=== PATIENT | female | born 1970 | race American Indian/Alaskan Native ===

== ENCOUNTER 2017-05-02 11:00 | Outpatient (CLI) | payer BC | END 2017-05-02 11:01 | disposition home or self-care (01) | LOC: SLR 11:00 | PROVIDERS: ATTEND Internal Medicine Critical Care Medicine | DX: G47.30 Sleep apnea, unspecified (principal); R40.0 Somnolence; E66.9 Obesity, unspecified | CPT/HCPCS: G0399 ==

== ENCOUNTER 2018-10-02 10:02 | Outpatient (CLI) | payer MEDICARE ==
--- NOTE | 2018-10-02 15:52 | Magnetic Resonance Report ---
MRI LUMBAR SPINE WITHOUT CONTRAST: 10/02/18 CLINICAL: Low back pain. TECHNIQUE: Sagittal and axial T1 and T2, and sagittal STIR sequences on a 1.5 Nyla magnet. FINDINGS: The vertebral bodies are labeled by counting from S1 and there is a well-formed S1 disc space. The upper cervical levels are not included on the farmworker bulbs preventing a top-down count. Normal vertebral body height, alignment and disc spaces. Normal marrow signal. Decreased T2 disc signal at L5-S1. The conus medullaris is normal and terminates at L1. L1-2: Intact. L2-3: Intact. L3-4: Intact. L4-5: Mild circumferential disc bulge and small focal central disc protrusion. Bilateral facet hypertrophy and facet joint fluid. Mild right neural foraminal narrowing. No obvious nerve root impingement. L5-S1: A small focal central disc protrusion which is in contact with the traversing nerve roots. No neural foraminal narrowing. IMPRESSION: Degenerative disc disease at L5-S1 and L4-5. A small focal central disc protrusion at L5-S1 with muscle impingement of the traversing nerve roots. Mild circumferential disc bulge and a small focal central disc protrusion at L4-5 with no apparent nerve root impingement.
== END 2018-10-02 10:03 | disposition home or self-care (01) ==
LOC: MRI 10:02
PROVIDERS: ATTEND Orthopaedic Surgery
DX: M51.37 Other intervertebral disc degeneration, lumbosacral region (principal); M51.27 Other intervertebral disc displacement, lumbosacral region
CPT/HCPCS: 72148

== ENCOUNTER 2020-11-14 13:16 | Inpatient (IN) | payer MEDICARE ==
--- NOTE | 2020-11-14 14:52 | Emergency Department Report ---
Blank Doc - Documentation Documentation: 50-year-old female that presents with chest pain and shortness of breath. Febrile, tachycardia and tachypnea in triage. 1- This is a initial triage assessment/medical screening only. Full assessment and work-up will be completed once the patient is in proper hospital gown, ED bed and in a private room setting. This initial assessment/diagnostic orders/clinical plan/ treatment(s) is/are subject to change based on pt's health status, clinical progression and re-assessment by fellow clinical providers in the ED. Further treatment and workup at subsequent clinical providers discretion. Patient/guardians urged not to elope from ED as their condition may be serious if not clinically assessed and managed. 2-cardiac work-up 3-possible PUI 4-charge preparation technician notified to have patient brought back JER[facility].
[2020-11-14 15:26] LABS: Basophils # (Auto) 0.2 K/mm3 (0.0-0.1); Basophils % (Auto) 1.5 % (0.0-1.8); Eosinophils # (Auto) 0.9 K/mm3 (0.0-0.4); Hematocrit 42.2 % (30.3-42.9); Hemoglobin 14.2 gm/dl (10.1-14.3); Lymphocytes % (Auto) 18.2 % (13.4-35.0); Mean Corpuscular HGB Conc 34 % (30-34); Mean Corpuscular Volume 87 fl (79-97); Monocytes # (Auto) 0.6 K/mm3 (0.0-0.8); Monocytes % (Auto) 5.2 % (0.0-7.3); Platelet Count 343 K/mm3 (140-440); Red Blood Count 4.86 M/mm3 (3.65-5.03); Red Cell Distribution Width 13.6 % (13.2-15.2)
--- NOTE | 2020-11-14 15:36 | XRay Report ---
CHEST 2 VIEWS INDICATION / CLINICAL INFORMATION: Chest Pain. COMPARISON: None available. FINDINGS: SUPPORT DEVICES: None. HEART / MEDIASTINUM: No significant abnormality. LUNGS / PLEURA: No significant pulmonary or pleural abnormality. No pneumothorax. ADDITIONAL FINDINGS: No significant additional findings. IMPRESSION: 1. No acute findings. Signer Name: Bishnu Bello MD Signed: 11/14/2020 3:32 PM Workstation Name: [id number]
[2020-11-14 15:38] LABS: INR 0.97 (0.87-1.13)
[2020-11-14 15:39] LABS: Partial Thromboplastin Time 28.6 Sec. (24.2-36.6)
[2020-11-14 15:46] LABS: Alanine Aminotransferase 17 units/L (7-56); Albumin 4.2 g/dL (3.9-5); Blood Urea Nitrogen 9 mg/dL (7-17); Calcium 9.8 mg/dL (8.4-10.2); Hemolysis Index 0
[2020-11-14 16:00] LABS: BUN/Creatinine Ratio 15
[2020-11-14] MEDS ORDERED: AZITHROMYCIN/NS 500 MG/250 ML 500 MG/250 ML BAG IV ONE ×2 (17:49→22:30)
[2020-11-14] MEDS ORDERED: cefTRIAXone/NS 1 GM/50 ML 1 GM/50 ML BAG IV ONE (17:49)
[2020-11-14] MEDS ORDERED: ALBUTEROL 2.5 MG/3 ML NEBU IH ONE (17:49)
[2020-11-14] MEDS ORDERED: MORPHINE 4 MG/1 ML INJ IV ONE (17:49)
[2020-11-14] MEDS ORDERED: ONDANSETRON 4 MG/2 ML INJ IV ONE (17:49)
[2020-11-14] MEDS ORDERED: IPRATROPIUM 0.02% NEBU 2.5 ML IH ONE (17:49)
[2020-11-14] MEDS ORDERED: methylPREDNISolone Sod Succinate 125 MG/2 ML INJ IV ONE (17:49)
[2020-11-14] MEDS ORDERED: ACETAMINOPHEN 325 MG TAB PO ONE (17:49)
[2020-11-14] MEDS ORDERED: SODIUM CHLORIDE 0.9% 500 ML 500 ML IV ONE (17:51)
--- NOTE | 2020-11-14 17:52 | Emergency Department Report ---
ED General Adult HPI - General Chief complaint: Dyspnea/Respdistress Stated complaint: DIFF BREATHING PUI?: Yes Time Seen by Provider: 11/14/20 14:48 Source: patient, RN notes reviewed, old records reviewed Mode of arrival: Wheelchair Limitations: No Limitations, Physical Limitation - History of Present Illness Initial comments: The patient was evaluated in the emergency department for symptoms described in the history of present illness. He/she was evaluated in the context of the global COVID-19 pandemic, which necessitated consideration that the patient might be at risk for infection with the virus that causes COVID-19. Institutional protocols and algorithms that pertain to the evaluation of patients at risk for COVID-19 are in a state of rapid change based on information released by regulatory bodies including the CDC and federal and state organizations. These policies and algorithms were followed during the miguelina sandhu's care in the emergency department. Please note that these policies, procedures and recommendations changed on a rapid basis. During the entire history and physical examination, I had a complete personal protective equipment. Pulmonology: Dr. Cortes Past medical history: Sarcoid, on chronic steroids, chronic pain, on pain management, diabetes, obesity, not home oxygen dependent. Reports having completed 1 round of COVID-19 vaccinations. The patient is a 50-year-old female who is not known to myself previously, presenting to the ER with a complaint of cough, wheezing, shortness of breath, chest tightness. Has chronic loss of taste and smell for years. Does not believe that she was exposed to Covid. States this feels like similar exacerbations of Covid and/or pneumonia. Symptoms constant for the past 4 days, worse with physical exertion, decreased with rest. Denies travel, surgery, immobilization, DVT and pulmonary embolism risk factors. Has chronic musculoskeletal pain. -: Gradual, days(s) Severity scale (0 -10): 0 Consistency: constant Improves with: medication, rest Worsens with: movement - Related Data Home Medications Medication Instructions Recorded Confirmed Last Taken Oxycodone HCl [oxyCODONE] 15 mg PO Q8HR 11/15/20 11/15/20 11/14/20 amLODIPine [Norvasc] 10 mg PO DAILY 11/15/20 11/15/20 11/14/20 predniSONE [Deltasone] 20 mg PO QDAY 11/15/20 11/15/20 11/14/20 tiZANidine [Zanaflex 4mg TAB] 4 mg PO TID 11/15/20 11/15/20 11/14/20 Allergies Allergy/AdvReac Type Severity Reaction Status Date / Time soy Allergy Unknown Verified 11/14/20 17:58 ED Review of Systems ROS: Stated complaint: DIFF BREATHING Other details as noted in HPI Constitutional: fever, malaise, weakness Eyes: denies: eye discharge ENT: congestion Respiratory: cough, shortness of breath, SOB with exertion, SOB at rest, wheezing Cardiovascular: chest pain Gastrointestinal: nausea. denies: abdominal pain, vomiting Genitourinary: denies: urgency Musculoskeletal: back pain, arthralgia, myalgia Neurological: weakness Psychiatric: anxiety Hematological/Lymphatic: denies: easy bleeding ED Past Medical Hx - Past Medical History Previous Medical History?: Yes Hx Diabetes: Yes Additional medical history: sarcoidosis - Surgical History Past Surgical History?: Yes Additional Surgical History: hyst - Medications Home Medications: Home Medications Medication Instructions Recorded Confirmed Last Taken Type Oxycodone HCl [oxyCODONE] 15 mg PO Q8HR 11/15/20 11/15/20 11/14/20 History amLODIPine [Norvasc] 10 mg PO DAILY 11/15/20 11/15/20 11/14/20 History predniSONE [Deltasone] 20 mg PO QDAY 11/15/20 11/15/20 11/14/20 History tiZANidine [Zanaflex 4mg TAB] 4 mg PO TID 11/15/20 11/15/20 11/14/20 History ED Physical Exam - General Limitations: Physical Limitation General appearance: alert, anxious, in distress, obese - Head Head exam: Present: atraumatic, normocephalic - Eye Eye exam: Present: normal appearance, EOMI. Absent: nystagmus - ENT ENT exam: Present: normal exam, normal orophraynx, mucous membranes moist, normal external ear exam - Neck Neck exam: Present: normal inspection, full ROM. Absent: tenderness, meningismus - Respiratory Respiratory exam: Present: respiratory distress, accessory muscle use, other (Pulmonary auscultation not performed secondary to lack of disposable stethoscope). 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 Absent: distended, tenderness, guarding, rebound, rigid, pulsatile mass - Extremities Exam Extremities exam: Present: normal inspection, full ROM, other (2+ pulses noted in the bilateral upper and lower extremities. There is no palpable cord. neg ative Homans sign. Muscular compartments are soft. The pelvis is stable.). Absent: pedal edema, calf tenderness - Back Exam Back exam: Present: normal inspection, paraspinal tenderness. Absent: tenderness, CVA tenderness (R), CVA tenderness (L), muscle spasm, vertebral tenderness - Neurological Exam Neurological exam: Present: alert, other (No facial droop. Tongue midline. Extraocular movements intact bilaterally. Facial sensation intact to light touch in V1, V2, V3 distribution bilaterally. 5 and a 5 strength in 4 extremities. Sensation intact to light touch in 4 extremities.) - Psychiatric Psychiatric exam: Present: anxious - Skin Skin exam: Present: warm, dry, intact, normal color. Absent: rash ED Course Vital Signs 11/14/20 11/14/20 11/14/20 14:45 17:17 18:01 Temperature 100.2 F H Pulse Rate 127 H 127 H 127 H Pulse Rate [ Posterior Bilateral Throughout] Respiratory 28 H 32 H 22 Rate Respiratory Rate [Posterior Bilateral Throughout] Blood Pressure 138/81 Blood Pressure 149/86 136/84 [Right] O2 Sat by Pulse 93 89 99 Oximetry 11/14/20 11/14/20 11/14/20 18:06 18:15 18:31 Temperature Pulse Rate 127 H 127 H 120 H Pulse Rate [ Posterior Bilateral Throughout] Respiratory 28 H 25 H 30 H Rate Respiratory Rate [Posterior Bilateral Throughout] Blood Pressure 138/81 138/81 Blood Pressure [Right] O2 Sat by Pulse 100 99 100 Oximetry 11/14/20 11/14/20 11/14/20 18:45 19:01 19:07 Temperature Pulse Rate 120 H 118 H Pulse Rate [ 119 H Posterior Bilateral Throughout] Respiratory 24 21 Rate Respiratory 28 H Rate [Posterior Bilateral Throughout] Blood Pressure 138/81 138/81 Blood Pressure [Right] O2 Sat by Pulse 100 100 Oximetry 11/14/20 11/14/20 11/14/20 19:15 19:31 19:45 Temperature Pulse Rate 115 H 133 H 112 H Pulse Rate [ Posterior Bilateral Throughout] Respiratory 14 32 H 19 Rate Respiratory Rate [Posterior Bilateral Throughout] Blood Pressure 138/81 138/81 138/81 Blood Pressure [Right] O2 Sat by Pulse 100 99 99 Oximetry 11/14/20 11/14/20 11/14/20 19:56 20:01 20:15 Temperature Pulse Rate 112 H 110 H 125 H Pulse Rate [ Posterior Bilateral Throughout] Respiratory 21 21 27 H Rate Respiratory Rate [Posterior Bilateral Throughout] Blood Pressure 138/81 138/81 Blood Pressure [Right] O2 Sat by Pulse 99 100 92 Oximetry 11/14/20 11/14/20 11/14/20 20:31 20:45 21:01 Temperature Pulse Rate 107 H 104 H 103 H Pulse Rate [ Posterior Bilateral Throughout] Respiratory 20 20 21 Rate Respiratory Rate [Posterior Bilateral Throughout] Blood Pressure 138/81 138/81 138/81 Blood Pressure [Right] O2 Sat by Pulse 99 99 99 Oximetry 11/14/20 11/14/20 11/14/20 21:15 21:31 21:45 Temperature Pulse Rate 118 H 102 H 97 H Pulse Rate [ Posterior Bilateral Throughout] Respiratory 26 H 20 20 Rate Respiratory Rate [Posterior Bilateral Throughout] Blood Pressure 138/81 138/81 138/81 Blood Pressure [Right] O2 Sat by Pulse 92 99 99 Oximetry 11/14/20 11/14/20 11/14/20 22:01 22:15 22:23 Temperature Pulse Rate 104 H 102 H 106 H Pulse Rate [ Posterior Bilateral Throughout] Respiratory 20 21 19 Rate Respiratory Rate [Posterior Bilateral Throughout] Blood Pressure 138/81 138/81 138/81 Blood Pressure [Right] O2 Sat by Pulse 100 99 100 Oximetry 11/14/20 11/14/20 11/15/20 23:10 23:53 00:00 Temperature Pulse Rate 116 H 101 H 107 H Pulse Rate [ Posterior Bilateral Throughout] Respiratory 27 H 23 12 Rate Respiratory Rate [Posterior Bilateral Throughout] Blood Pressure Blood Pressure [Right] O2 Sat by Pulse 95 100 100 Oximetry 11/15/20 11/15/20 11/15/20 00:50 01:00 01:10 Temperature Pulse Rate 95 H 94 H 98 H Pulse Rate [ Posterior Bilateral Throughout] Respiratory 19 19 21 Rate Respiratory Rate [Posterior Bilateral Throughout] Blood Pressure Blood Pressure [Right] O2 Sat by Pulse 99 99 99 Oximetry 11/15/20 11/15/20 11/15/20 01:20 01:30 01:40 Temperature Pulse Rate 96 H 100 H 100 H Pulse Rate [ Posterior Bilateral Throughout] Respiratory 20 20 20 Rate Respiratory Rate [Posterior Bilateral Throughout] Blood Pressure Blood Pressure [Right] O2 Sat by Pulse 99 100 99 Oximetry 11/15/20 11/15/20 01:50 02:00 Temperature Pulse Rate 100 H 98 H Pulse Rate [ Posterior Bilateral Throughout] Respiratory 19 21 Rate Respiratory Rate [Posterior Bilateral Throughout] Blood Pressure Blood Pressure [Right] O2 Sat by Pulse 100 100 Oximetry ED Medical Decision Making - Lab Data Result diagrams: 11/14/20 15:05 11/15/20 04:57 Vital Signs 11/14/20 11/14/20 11/14/20 14:45 17:17 18:06 Temperature 100.2 F H Pulse Rate 127 H 127 H 127 H Respiratory 28 H 32 H 28 H Rate Blood Pressure 149/86 136/84 [Right] O2 Sat by Pulse 93 89 100 Oximetry Lab Results 11/14/20 11/14/20 11/14/20 Range/Units 15:05 15:05 15:05 WBC 10.9 (4.5-11.0) K/mm3 RBC 4.86 (3.65-5.03) M/mm3 Hgb 14.2 (10.1-14.3) gm/dl Hct 42.2 (30.3-42.9) % MCV 87 (79-97) fl MCH 29 (28-32) pg MCHC 34 (30-34) % RDW 13.6 (13.2-15.2) % Plt Count 343 (140-440) K/mm3 Lymph % (Auto) 18.2 (13.4-35.0) % [place] % (Auto) 5.2 (0.0-7.3) % Eos % (Auto) 8.0 H (0.0-4.3) % Baso % (Auto) 1.5 (0.0-1.8) % Lymph # (Auto) 2.0 (1.2-5.4) K/mm3 Oxford # (Auto) 0.6 (0.0-0.8) K/mm3 Eos # (Auto) 0.9 H (0.0-0.4) K/mm3 Baso # (Auto) 0.2 H (0.0-0.1) K/mm3 Seg Neutrophils % 67.1 (40.0-70.0) % Seg Neutrophils # 7.3 (1.8-7.7) K/mm3 PT 13.5 (12.2-14.9) Sec. INR 0.97 (0.87-1.13) APTT 28.6 (24.2-36.6) Sec. Sodium 135 L (137-145) mmol/L Potassium 4.1 (3.6-5.0) mmol/L Chloride 97.4 L (98-107) mmol/L Carbon Dioxide 25 (22-30) mmol/L Anion Gap 17 mmol/L BUN 9 (7-17) mg/dL Creatinine 0.6 (0.6-1.2) mg/dL Estimated GFR > 60 ml/min BUN/Creatinine Ratio 15 % Glucose 150 H (65-100) mg/dL Lactic Acid (0.7-2.0) mmol/L Calcium 9.8 (8.4-10.2) mg/dL Magnesium (1.7-2.3) mg/dL Total Bilirubin 2.00 H (0.1-1.2) mg/dL AST 24 (5-40) units/L ALT 17 (7-56) units/L Alkaline Phosphatase 130 H (35-129) units/L Troponin T < 0.010 (0.00-0.029) ng/mL Total Protein 7.9 (6.3-8.2) g/dL Albumin 4.2 (3.9-5) g/dL Albumin/Globulin Ratio 1.1 % 11/14/20 11/14/20 Range/Units 15:05 15:05 WBC (4.5-11.0) K/mm3 RBC (3.65-5.03) M/mm3 Hgb (10.1-14.3) gm/dl Hct (30.3-42.9) % MCV (79-97) fl MCH (28-32) pg MCHC (30-34) % RDW (13.2-15.2) % Plt Count (140-440) K/mm3 Lymph % (Auto) (13.4-35.0) % Oxford % (Auto) (0.0-7.3) % Eos % (Auto) (0.0-4.3) % Baso % (Auto) (0.0-1.8) % Lymph # (Auto) (1.2-5.4) K/mm3 Oxford # (Auto) (0.0-0.8) K/mm3 Eos # (Auto) (0.0-0.4) K/mm3 Baso # (Auto) (0.0-0.1) K/mm3 Seg Neutrophils % (40.0-70.0) % Seg Neutrophils # (1.8-7.7) K/mm3 PT (12.2-14.9) Sec. INR (0.87-1.13) APTT (24.2-36.6) Sec. Sodium (137-145) mmol/L Potassium (3.6-5.0) mmol/L Chloride (98-107) mmol/L Carbon Dioxide (22-30) mmol/L Anion Gap mmol/L BUN (7-17) mg/dL Creatinine (0.6-1.2) mg/dL Estimated GFR ml/min BUN/Creatinine Ratio % Glucose (65-100) mg/dL Lactic Acid 1.00 (0.7-2.0) mmol/L Calcium (8.4-10.2) mg/dL Magnesium 2.30 (1.7-2.3) mg/dL Total Bilirubin (0.1-1.2) mg/dL AST (5-40) units/L ALT (7-56) units/L Alkaline Phosphatase (35-129) units/L Troponin T (0.00-0.029) ng/mL Total Protein (6.3-8.2) g/dL Albumin (3.9-5) g/dL Albumin/Globulin Ratio % - EKG Data -: EKG Interpreted by Ny EKG shows normal: sinus rhythm Rate: tachycardia - EKG Data 11/14/20 18:27 EKG interpreted at 15: 00 Sinus rhythm, tachycardia, normal P wave axis, rate 128 bpm. Normal axis, normal intervals, borderline left ventricular hypertrophy. Motion artifact. Not a STEMI. - Radiology Data Radiology results: pending, report reviewed, image reviewed [facility] [address] [place] [address] XRay Report Signed Patient: TASIA RDZ MR#: [id number] : 1970 Acct:[id number] Age/Sex: 50 / F ADM Date: 11/14/20 Loc: ED Attending Dr: Ordering Physician: MARISABEL MATOS NP Date of Service: 11/14/20 Procedure(s): XR chest routine 2V Accession Number(s): [id number] cc: MARISABEL MATOS NP Fluoro Time In Minutes: CHEST 2 VIEWS INDICATION / CLINICAL INFORMATION: Chest Pain. COMPARISON: None available. FINDINGS: SUPPORT DEVICES: None. HEART / MEDIASTINUM: No significant abnormality. LUNGS / PLEURA: No significant pulmonary or pleural abnormality. No pneumothorax. ADDITIONAL FINDINGS: No significant additional findings. IMPRESSION: 1. No acute findings. Signer Name: Bishnu Stanford MD Signed: 11/14/2020 3:32 PM Workstation Name: [id number][id number] Transcribed By: Dictated By: BISHNU STANFORD Electronically Authenticated By: BISHNU STANFORD Signed Date/Time: 11/14/20 153 DD/DT: [address] [place] [address] Cat Scan Report Signed Patient: TASIA RDZ MR#: [id number] : 1 06/12/1969 Acct:[id number] Age/Sex: 50 / F ADM Date: 11/14/20 Loc: 4A [id number]: JEANINE SU MD Ordering Physician: EMORY WARE MD Date of Service: 11/14/20 Procedure(s): CT angio chest Accession Number(s): [id number] cc: EMORY WARE MD CTA CHEST WITH IV CONTRAST INDICATION: Shortness of breath. Chest pain. TECHNIQUE: Axial CT images were obtained through the chest after injection of IV contrast. Coronal oblique 2- D reconstruction images were produced. 3 plane MIP reconstruction images were produced at an [employer] workstation. All CTs at this facility utilize dose reduction techniques including automated exposure control, iterative reconstruction and weight based dosing when appropriate to reduce patient radiation dose to as low as reasonable achievable. COMPARISON: Chest radiograph, 11/14/2020. No prior cross-sectional imaging is available for comparison FINDINGS: Evaluation of the pulmonary arteries demonstrates no evidence of central or segmental filling defect to suggest pulmonary embolism. The heart is normal in size. The thoracic aorta is normal in caliber. Evaluation of the lung parenchyma demonstrates diffuse bilateral patchy predominantly peripheral opacities. There is no pleural effusion. The visualized portions of the thyroid gland are enlarged, left lobe greater than right lobe with substernal extension. Limited imaging of the upper abdomen demonstrates no acute abnormality. Bones and soft tissues: Evaluation of bony structures demonstrates no evidence of acute bony abnormality. Healed left rib fractures are noted. IMPRESSION: 1. Patchy bilateral pulmonary opacities suggesting an atypical viral infection. 2. No evidence of pulmonary embolism. 3. Enlargement of the thyroid gland with substernal extension. This most likely represents goiter but further evaluation with ultrasound could be performed when the patient's clinical condition permits. Signer Name: Anabella Schmid MD Signed: 11/14/2020 11:18 PM Workstation Name: [id number][id number] Transcribed By: EB Dictated By: Anabella Schmid MD Electronically Authenticated By: Anabella Schmid MD Signed Date/Time: 11/14/202317 DD/ 12 - Medical Decision Making Differential diagnosis, including but not limited to: Pneumonia, bacteremia, viremia, sarcoid exacerbation, reactive airways disease exacerbation, pulmonary embolism, COVID-19 Assessment and plan: 50-year-old female with low-grade temperature, who is tachycardic and tachypneic, with a known history of sarcoid, who is steroid- dependent, meets criteria for systemic inflammatory response syndrome by merit of tachycardia, and tachypnea. Start patient on albuterol, Atrovent, steroids, magnesium, BiPAP therapy. Gentle fluids at this time, as volume overload/excessive volume resuscitation may result in arts-like picture, given consideration for sarcoidosis and/or Covid. Treat patient's symptoms, and admit to the medical service. CT scan of the chest ordered. Have discussed this plan of care with the patient, who is amenable to admission. Hospital physician, Dr. Su, to admit patient to the medical service. Internal medicine team has indicated that they will consult the patient's personal back hanger for further recommendations. Critical Care Time: Yes Critical care time in (mins) excluding proc time.: 35 Critical care attestation.: If time is entered above; I have spent that time in minutes in the direct care of this critically ill patient, excluding procedure time. ED Disposition Clinical Impression: Acute respiratory failure with hypoxia, Sarcoid, SIRS (systemic inflammatory response syndrome), Suspected 2019 novel coronavirus infection Disposition: [id number] OP ADMIT IP TO THIS HOSP Is pt being admited?: Yes Does the pt Need Aspirin: No Condition: Serious
--- NOTE | 2020-11-14 17:56 | History and Physical Report ---
History of Present Illness Chief complaint: I cant breathe History of present illness: 50 YO Female with Sarcoidosis, DM presents to ED for evaluation. Pt reports "I cant breathe". Patient states that she has experienced shortness of breath, fatigue over the past 3 days with persistently worsening symptoms over the same timeframe. Patient transported to [facility] via private vehicle for further care and evaluation of the aforementioned symptoms. The patient was seen and evaluated in the emergency department. All lab and imaging studies reviewed. The patient was found to have a pulse oximetry of 89% on room air which is consistent with acute hypoxemic respiratory failure. The patient is using accessory muscles to breathe, tripoding, and unable to speak in complete sentences. Patient uses head gestures to acknowledge symptoms. Patient also found to have systemic plantar response syndrome and initiated on empiric IV antibiotic therapy x1 dose in the emergency department. Patient placed on noninvasive positive pressure ventilation in the emergency department with mild improvement in symptoms. Patient admitted to telemetry due to increased risk of worsening symptoms. Patient treated with IV steroid therapy. Patient denies fever, chills, chest pain, palpitation, productive cough, skin rash, recent ill contacts, known exposure to COVID-19. No prior admission for review. All medication listed at time of admission has been reconciled. Pulmonology consulted in ED. Past History Past Medical History: diabetes, other (See HPI) Past Surgical History: hysterectomy Social history: single. denies: smoking, alcohol abuse, prescription drug abuse Family history: diabetes, hypertension Medications and Allergies Allergies Allergy/AdvReac Type Severity Reaction Status Date / Time soy Allergy Unknown Verified 11/14/20 17:58 Active Meds: Active Medications Azithromycin (Zithromax/Ns) 500 mg in 250 mls @ 250 mls/hr IV ONCE ONE; Protocol Stop: 11/14/20 18:48 Ceftriaxone Sodium (Rocephin/Ns 1 Gm/50 Ml) 1 gm in 50 mls @ 100 mls/hr IV ONCE ONE; Protocol Stop: 11/14/20 18:18 Sodium Chloride (Nacl 0.9% 500 Ml) 500 mls @ 999 mls/hr IV ONCE ONE Stop: 11/14/20 18:21 Review of Systems Constitutional: malaise, no weight loss, no weight gain, no fever, no chills Ears, nose, mouth and throat: no ear pain, no tinnitis, no decreased hearing, no nose pain, no nasal congestion, no nasal discharge, no sinus pressure Breasts: no change in shape, no swelling, no mass Cardiovascular: shortness of breath, no rapid/irregular heart beat Respiratory: no cough, no cough with sputum, no excessive sputum Gastrointestinal: nausea, no abdominal pain, no vomiting, no diarrhea Genitourinary Female: no pelvic pain, no flank pain, no dysuria, no urinary frequency, no urgency Rectal: no pain, no incontinence, no bleeding Musculoskeletal: no neck stiffness, no low back pain Integumentary: no rash, no pruritis, no redness, no sores, no wounds Neurological: no head injury, no transient paralysis, no paralysis, no weakness, no numbness, no tingling, no seizures, no syncope Psychiatric: no anxiety, no memory loss, no sleep disturbances, no insomnia, no hypersomnia, no change in libido, no suicidal ideation, no disorientation Endocrine: no cold intolerance, no polyphagia, no polydipsia, no excessive sweating Hematologic/Lymphatic: no easy bruising, no lymphedema Allergic/Immunologic: no urticaria, no wheezing, no persistent infections Exam - Constitutional Vitals: Temp Pulse Resp BP Pulse Ox 100.2 F H 127 H 32 H 136/84 89 11/14/20 14:45 11/14/20 17:17 11/14/20 17:17 11/14/20 17:17 11/14/20 17:17 General appearance: Present: mild distress - EENT Eyes: Present: PERRL ENT: hearing intact, clear oral mucosa - Neck Neck: Present: supple, normal ROM - Respiratory Respiratory effort: labored, accessory muscle use, stridor Respiratory: bilateral: diminished, rhonchi - Cardiovascular Heart Sounds: Present: S1 & S2. Absent: rub, click - Extremities Extremities: pulses symmetrical, No edema Peripheral Pulses: within normal limits - Abdominal General gastrointestinal: Present: soft, non-tender, non-distended, normal bowel sounds Female genitourinary: Present: normal - Integumentary Integumentary: Present: clear, warm, dry - Musculoskeletal Musculoskeletal: gait normal, strength equal bilaterally - Psychiatric Psychiatric: appropriate mood/affect, intact judgment & insight - Neurologic Neurologic: CNII-XII intact, moves all extremities HEART Score - HEART Score Troponin: Troponin T < 0.010 ng/mL (0.00-0.029) 11/14/20 15:05 Results - Labs CBC & Chem 7: 11/14/20 15:05 11/14/20 15:05 Labs: Abnormal lab results 11/14/20 11/14/20 Range/Units 15:05 15:05 Eos % (Auto) 8.0 H (0.0-4.3) % Eos # (Auto) 0.9 H (0.0-0.4) K/mm3 Baso # (Auto) 0.2 H (0.0-0.1) K/mm3 Sodium 135 L (137-145) mmol/L Chloride 97.4 L (98-107) mmol/L Glucose 150 H (65-100) mg/dL Total Bilirubin 2.00 H (0.1-1.2) mg/dL Alkaline Phosphatase 130 H (35-129) units/L Assessment and Plan - Patient Problems (1) Acute respiratory failure with hypoxia Current Visit: Yes Status: Acute Plan to address problem: Chest x-ray, supplemental oxygen, pulse oximetry, nebulizer therapy, noninvasive positive pressure ventilation, arterial blood gas, pulmonary team consulted in ED. (2) SIRS (systemic inflammatory response syndrome) Current Visit: Yes Status: Acute Plan to address problem: CBC, CMP, empiric IV antibiotic therapy x1 dose, repeat CBC in a.m. (3) Sarcoid Current Visit: Yes Status: Acute Plan to address problem: IV steroid therapy, supportive care, continue medical management. Outpatient rheumatology follow-up. (4) DVT prophylaxis Current Visit: Yes Status: Acute Plan to address problem: SCD to bilateral lower extremities while in bed, patient is ambulatory
[2020-11-14] MEDS ORDERED: ONDANSETRON 4 MG/2 ML INJ IV PRN (18:25)
[2020-11-14] MEDS ORDERED: ALBUTEROL 2.5 MG/3 ML NEBU IH PRN (18:25)
[2020-11-14] MEDS ORDERED: ACETAMINOPHEN 325 MG TAB PO PRN (18:25)
[2020-11-14] MEDS ORDERED: ALPRAZolam 0.25 MG TAB PO PRN (21:23)
[2020-11-14] MEDS ORDERED: ALPRAZolam 0.25 MG TAB PO ONE (23:00)
--- NOTE | 2020-11-14 23:22 | Cat Scan Report ---
CTA CHEST WITH IV CONTRAST INDICATION: Shortness of breath. Chest pain. TECHNIQUE: Axial CT images were obtained through the chest after injection of IV contrast. Coronal oblique 2-D reconstruction images were produced. 3 plane MIP reconstruction images were produced at an [employer] workstation. All CTs at this facility utilize dose reduction techniques including automated expos ure control, iterative reconstruction and weight based dosing when appropriate to reduce patient radi ation dose to as low as reasonable achievable. COMPARISON: Chest radiograph, 11/14/2020. No prior cross-sectional imaging is available for comparison FINDINGS: Evaluation of the pulmonary arteries demonstrates no evidence of central or segmental filling defect to suggest pulmonary embolism. The heart is normal in size. The thoracic aorta is normal in caliber. Evaluation of the lung parenchyma demonstrates diffuse bilateral patchy predominantly peripheral opac ities. There is no pleural effusion. The visualized portions of the thyroid gland are enlarged, left lobe greater than right lobe with sub sternal extension. Limited imaging of the upper abdomen demonstrates no acute abnormality. Bones and soft tissues: Evaluation of bony structures demonstrates no evidence of acute bony abnormal ity. Healed left rib fractures are noted. IMPRESSION: 1. Patchy bilateral pulmonary opacities suggesting an atypical viral infection. 2. No evidence of pulmonary embolism. 3. Enlargement of the thyroid gland with substernal extension. This most likely represents goiter but further evaluation with ultrasound could be performed when the patient's clinical condition permits. Signer Name: Anabella Schmid MD Signed: 11/14/2020 11:18 PM Workstation Name: [id number]
[2020-11-14 23:29] LABS: Bacteria,Urine 1+ /HPF (Negative); Bilirubin,Urine NEG (Negative); Blood,Urine NEG (Negative); Color,Urine Yellow (Yellow); Mucus,Urine 1+ /HPF
[2020-11-15] MEDS: guaiFENesin DM 200/20 MG ORAL LIQD 10 ML PO PRN ×2 (02:29→19:08)
[2020-11-15] MEDS: oxyCODONE /ACETAMINOPHEN 5-325MG TAB PO PRN ×2 (02:29→22:17)
--- NOTE | 2020-11-15 04:54 | Consultation ---
History of Present Illness Consult date: 11/15/20 Requesting physician: EMORY WARE Reason for consult: dyspnea, other (Sarcoid Flare) History of present illness: 50 y/o female, well known to me as she is my clinic patient, but was lost to follow up for a long time presents with chest pain, shortness of breath and low grade temps. 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 I first met her several years ago at [facility] where she had been followed by Dr. Kwong. She then requested care to be transferred. I saw her once after that up until this year maybe 2-3 months ago. We have been trying to wean her off steroids which I think she was then off when I saw her. CTA today shows bilateral patchy ground glass opacities concerning for atypical pneumonia like COVID 19. patient placed on bipap in the ED and continues on this. Past History Past Medical History: diabetes, hypertension, sarcoidosis Past Surgical History: hysterectomy Social history: single. denies: smoking, alcohol abuse, prescription drug abuse Family history: diabetes, hypertension Medications and Allergies Allergies Allergy/AdvReac Type Severity Reaction Status Date / Time soy Allergy Unknown Verified 11/14/20 17:58 Home Medications Medication Instructions Recorded Confirmed Last Taken Type Oxycodone HCl [oxyCODONE] 15 mg PO Q8HR 11/15/20 11/15/20 11/14/20 History amLODIPine [Norvasc] 10 mg PO DAILY 11/15/20 11/15/20 11/14/20 History predniSONE [Deltasone] 20 mg PO QDAY 11/15/20 11/15/20 11/14/20 History tiZANidine [Zanaflex 4mg TAB] 4 mg PO TID 11/15/20 11/15/20 11/14/20 History Active Meds: Active Medications Acetaminophen (Acetaminophen 325 Mg Tab) 650 mg PO Q4H PRN PRN Reason: Pain MILD(1-3)/Fever >100.5/FRANCO Albuterol (Albuterol 2.5 Mg/3 Ml Nebu) 2.5 mg IH Q4H PRN PRN Reason: Shortness Of Breath Guaifenesin (Guaifenesin Dm 200/20 Mg Oral Liqd 10 Ml) 10 ml PO Q4H PRN PRN Reason: Cough Last Admin: 11/15/20 02:29 Dose: 10 ml Documented by: Methylprednisolone Sodium Succinate (Methylprednisolone Sod Succinate 40 Mg/1 Ml Inj) 40 mg IV Q12H MICHAEL Ondansetron HCl (Ondansetron 4 Mg/2 Ml Inj) 4 mg IV Q8H PRN PRN Reason: Nausea And Vomiting Oxycodone/Acetaminophen (Oxycodone /Acetaminophen 5-325mg Tab) 1 tab PO Q6H PRN PRN Reason: Pain, Moderate (4-6) Last Admin: 11/15/20 02:29 Dose: 1 tab Documented by: Sodium Chloride (Sodium Chloride 0.9% 10 Ml Flush Syringe) 10 ml IV BID MICHAEL Last Admin: 11/14/20 22:12 Dose: Not Given Documented by: Sodium Chloride (Sodium Chloride 0.9% 10 Ml Flush Syringe) 10 ml IV PRN PRN PRN Reason: LINE FLUSH Physical Examination Vital signs: Vital Signs Temp Pulse Resp BP Pulse Ox 100.2 F H 127 H 28 H 149/86 93 11/14/20 14:45 11/14/20 14:45 11/14/20 14:45 11/14/20 14:45 11/14/20 14:45 Results - Laboratory Findings CBC and BMP: 11/14/20 15:05 11/14/20 15:05 ABG ABG pH 7.412 (7.320-7.450) 11/14/20 18:05 POC ABG pCO2 39.3 mmHg (32.0-48.0) 11/14/20 18:05 POC ABG pO2 97.6 mmHg (83-108) 11/14/20 18:05 POC ABG HCO3 24.5 11/14/20 18:05 ABG O2 Saturation 98.0 (0-100) 11/14/20 18:05 PT/INR, D-dimer PT 13.5 Sec. (12.2-14.9) 11/14/20 15:05 INR 0.97 (0.87-1.13) 11/14/20 15:05 Abnormal lab findings: Abnormal Labs 11/14/20 11/14/20 11/14/20 15:05 15:05 18:05 Eos % (Auto) 8.0 H Eos # (Auto) 0.9 H Baso # (Auto) 0.2 H ABG Sodium 134.9 L ABG Glucose 170 H Carboxyhemoglobin 2.7 H Sodium 135 L Chloride 97.4 L Glucose 150 H Total Bilirubin 2.00 H Alkaline Phosphatase 130 H Arterial Blood Glucose 170 H Arterial Blood Ionized Calcium 4.5 L Ur Specific [place] U Epithel Cells (Auto) 11/14/20 23:11 Eos % (Auto) Eos # (Auto) Baso # (Auto) ABG Sodium ABG Glucose Carboxyhemoglobin Sodium Chloride Glucose Total Bilirubin Alkaline Phosphatase Arterial Blood Glucose Arterial Blood Ionized Calcium Ur Specific [place] 1.055 H U Epithel Cells (Auto) 14.0 H - Diagnostic Findings Chest x-ray: image reviewed CT scan - chest: image reviewed Assessment and Plan 50 y/o female with sarcoid, admitted with acute respiratory failure, could be sarcoid flare or sarcoid flare secondary to atypical pneumonia or just atypical pneumonia causing respiratory failure. 1. Changed steroids to 60q8 2. Albuterol puffer q4 hours PRN 3. Prone as tolerated during the day and sleep prone at night 4. Wean off bipap therapy 5. Monitor fluid balance and attempt to keep as dry as possible Will continue to follow.
[2020-11-15] MEDS: methylPREDNISolone Sod Succinate 40 MG/1 ML INJ IV SCH ×3 (05:50→22:16)
[2020-11-15] MEDS ORDERED: methylPREDNISolone Sod Succinate 40 MG/1 ML INJ IV SCH (06:00)
[2020-11-15 06:04] LABS: BUN/Creatinine Ratio 23; Blood Urea Nitrogen 21 mg/dL (7-17); Calcium 8.8 mg/dL (8.4-10.2); Hemolysis Index 1
--- NOTE | 2020-11-15 08:32 | Progress Note ---
Assessment and Plan Assessment and plan: --Acute respiratory failure with hypoxia/on BiPAP Current Visit: Yes Status: Acute Continue oxygen, BiPAP as needed Titrate O2 sats more than 90%, nebulizers Tapering dose of steroids .inhalation steroids and supportive care Pulmonary following --PUI; high suspicion for COVID-19 Current Visit: Yes Status: Acute Continue contact and droplet isolation, Follow [place] PCR test requested. -- SIRS (systemic inflammatory response syndrome) Current Visit: Yes Status: Acute Empiric antibiotics, follow cultures -- Sarcoid Current Visit: Yes Status: Acute IV steroid therapy, supportive care, continue medical management. Outpatient rheumatology follow-up upon discharge --Obesity; BMI 38.4 Current Visit: Yes Status: Chronic Patient needs weight reduction when medically stable Dietary modification exercise as tolerated and weight reduction When patient is stable, Nutrition consult needed --DVT prophylaxis Current Visit: Yes Status: Acute SCD to bilateral lower extremities while in bed, patient is ambulatory Closely monitor the patient and adjust management as needed Pulmonary consult and recommendations noted and appreciated Possible discharge in 1 to 2 days if stable Home oxygen evaluation at discharge Plan of care reviewed with the patient and her nurse 11/15/2020; tapering dose of steroids Patient is on BiPAP, wean as tolerated Home O2 evaluation prior to discharge History Interval history: I seen and examined the patient at the bedside this morning Patient is high suspicion for COVID-19/PUI, on isolation [place] PCR test is done Patient complains of mild shortness of breath On continuous BiPAP Morbidly obese Vital signs noted Hospitalist Physical - Constitutional Vitals: Temp Pulse Resp BP Pulse Ox 97.7 F 87 20 138/85 96 11/15/20 04:18 11/15/20 04:18 11/15/20 04:18 11/15/20 04:18 11/15/20 04:18 General appearance: Present: mild distress, well-nourished, obese (Morbidly obese) - EENT Eyes: Present: PERRL, EOM intact - Neck Neck: Present: supple, normal ROM - Respiratory Respiratory effort: normal Respiratory: bilateral: diminished, negative: rales, rhonchi, wheezing - Cardiovascular Rhythm: regular Heart Sounds: Present: S1 & S2 - Extremities Extremities: no ischemia, No edema - Abdominal General gastrointestinal: soft, non-tender, non-distended, normal bowel sounds - Integumentary Integumentary: Present: clear, warm - Psychiatric Psychiatric: appropriate mood/affect, cooperative - Neurologic Neurologic: CNII-XII intact, moves all extremities HEART Score - HEART Score Troponin: Troponin T < 0.010 ng/mL (0.00-0.029) 11/14/20 17:58 Results - Labs CBC & Chem 7: 11/14/20 15:05 11/15/20 04:57 Labs: Laboratory Last Values WBC 10.9 K/mm3 (4.5-11.0) 11/14/20 15:05 RBC 4.86 M/mm3 (3.65-5.03) 11/14/20 15:05 Hgb 14.2 gm/dl (10.1-14.3) 11/14/20 15:05 Hct 42.2 % (30.3-42.9) 11/14/20 15:05 MCV 87 fl (79-97) 11/14/20 15:05 MCH 29 pg (28-32) 11/14/20 15:05 MCHC 34 % (30-34) 11/14/20 15:05 RDW 13.6 % (13.2-15.2) 11/14/20 15:05 Plt Count 343 K/mm3 (140-440) 11/14/20 15:05 Lymph % (Auto) 18.2 % (13.4-35.0) 11/14/20 15:05 [place] % (Auto) 5.2 % (0.0-7.3) 11/14/20 15:05 Eos % (Auto) 8.0 % (0.0-4.3) H 11/14/20 15:05 Baso % (Auto) 1.5 % (0.0-1.8) 11/14/20 15:05 Lymph # (Auto) 2.0 K/mm3 (1.2-5.4) 11/14/20 15:05 [place] # (Auto) 0.6 K/mm3 (0.0-0.8) 11/14/20 15:05 Eos # (Auto) 0.9 K/mm3 (0.0-0.4) H 11/14/20 15:05 Baso # (Auto) 0.2 K/mm3 (0.0-0.1) H 11/14/20 15:05 Seg Neutrophils % 67.1 % (40.0-70.0) 11/14/20 15:05 Seg Neutrophils # 7.3 K/mm3 (1.8-7.7) 11/14/20 15:05 PT 13.5 Sec. (12.2-14.9) 11/14/20 15:05 INR 0.97 (0.87-1.13) 11/14/20 15:05 APTT 28.6 Sec. (24.2-36.6) 11/14/20 15:05 ABG pH 7.412 (7.320-7.450) 11/14/20 18:05 POC ABG pCO2 39.3 mmHg (32.0-48.0) 11/14/20 18:05 POC ABG pO2 97.6 mmHg (83-108) 11/14/20 18:05 POC ABG HCO3 24.5 11/14/20 18:05 ABG O2 Saturation 98.0 (0-100) 11/14/20 18:05 POC ABG Base Excess 0 11/14/20 18:05 ABG Hemoglobin 13.7 (12.0-17.5) 11/14/20 18:05 ABG Oxyhemoglobin 95.1 (94-98) 11/14/20 18:05 ABG Methemoglobin 0.3 (0.0-1.5) 11/14/20 18:05 ABG Sodium 134.9 mmol/L (136.0-145.0) L 11/14/20 18:05 ABG Potassium 4.4 mmol/L (3.40-4.50) 11/14/20 18:05 ABG Chloride 99.0 mmol/L (98-107) 11/14/20 18:05 ABG Glucose 170 mg/dL (65-95) H 11/14/20 18:05 Carboxyhemoglobin 2.7 (0.5-1.5) H 11/14/20 18:05 FiO2 % 35.0 11/14/20 18:05 Sodium 135 mmol/L (137-145) L 11/15/20 04:57 Potassium 4.6 mmol/L (3.6-5.0) 11/15/20 04:57 Chloride 96.3 mmol/L (98-107) L 11/15/20 04:57 Carbon Dioxide 24 mmol/L (22-30) 11/15/20 04:57 Anion Gap 19 mmol/L 11/15/20 04:57 BUN 21 mg/dL (7-17) H 11/15/20 04:57 Creatinine 0.9 mg/dL (0.6-1.2) 11/15/20 04:57 Estimated GFR > 60 ml/min 11/15/20 04:57 BUN/Creatinine Ratio 23 % 11/15/20 04:57 Glucose 292 mg/dL (65-100) H 11/15/20 04:57 Lactic Acid 1.00 mmol/L (0.7-2.0) 11/14/20 15:05 Calcium 8.8 mg/dL (8.4-10.2) 11/15/20 04:57 Magnesium 2.00 mg/dL (1.7-2.3) 11/14/20 17:58 Total Bilirubin 2.00 mg/dL (0.1-1.2) H 11/14/20 15:05 AST 24 units/L (5-40) 11/14/20 15:05 ALT 17 units/L (7-56) 11/14/20 15:05 Alkaline Phosphatase 130 units/L (35-129) H 11/14/20 15:05 Total Creatine Kinase 95 units/L (30-135) 11/14/20 17:58 Troponin T < 0.010 ng/mL (0.00-0.029) 11/14/20 17:58 Total Protein 7.9 g/dL (6.3-8.2) 11/14/20 15:05 Albumin 4.2 g/dL (3.9-5) 11/14/20 15:05 Albumin/Globulin Ratio 1.1 % 11/14/20 15:05 Arterial Blood Glucose 170 mg/dL (65-95) H 11/14/20 18:05 Arterial Blood Ionized Calcium 4.5 mg/dL (4.6-5.3) L 11/14/20 18:05 Urine Color Yellow (Yellow) 11/14/20 23:11 Urine Turbidity Slightly-cloudy (Clear) 11/14/20 23:11 Urine pH 5.0 (5.0-7.0) 11/14/20 23:11 Ur Specific [place] 1.055 (1.003-1.030) H 11/14/20 23:11 Urine Protein 30 mg/dl mg/dL (Negative) 11/14/20 23:11 Urine Glucose (UA) 50 mg/dL (Negative) 11/14/20 23:11 Urine Ketones 80 mg/dL (Negative) 11/14/20 23:11 Urine Blood Neg (Negative) 11/14/20 23:11 Urine Nitrite Neg (Negative) 11/14/20 23:11 Urine Bilirubin Neg (Negative) 11/14/20 23:11 Urine Urobilinogen 4.0 mg/dL (<2.0) 11/14/20 23:11 Ur Leukocyte Esterase Tr (Negative) 11/14/20 23:11 Urine WBC (Auto) 2.0 /HPF (0.0-6.0) 11/14/20 23:11 Urine RBC (Auto) 4.0 /HPF (0.0-6.0) 11/14/20 23:11 U Epithel Cells (Auto) 14.0 /HPF (0-13.0) H 11/14/20 23:11 Urine Bacteria (Auto) 1+ /HPF (Negative) 11/14/20 23:11 Urine Mucus 1+ /HPF 11/14/20 23:11 Microbiology: Microbiology 11/14/20 15:13 Peripheral/Venous Blood Culture - Preliminary Culture in Progress 11/14/20 15:05 Peripheral/Venous Blood Culture - Preliminary Culture in Progress Vivas/IV: Voiding Method Toilet Active Medications - Current Medications Current Medications: Generic Name Dose Route Start Last Admin Trade Name Freq PRN Reason Stop Dose Admin Acetaminophen 650 mg 11/14/20 18:25 Acetaminophen 325 Mg Tab PO Q4H PRN Pain MILD(1-3)/Fever >100.5/FRANCO Albuterol 2.5 mg 11/14/20 18:25 Albuterol 2.5 Mg/3 Ml Nebu IH Q4H PRN Shortness Of Breath Guaifenesin 10 ml 11/15/20 02:19 11/15/20 02:29 Guaifenesin Dm 200/20 Mg Oral Liqd 10 Ml PO 10 ml Q4H PRN Administration Cough Insulin Human Lispro 0 unit 11/15/20 07:30 Insulin Lispro 100 Unit/Ml SUB-Q ACHS MICHAEL Protocol Methylprednisolone Sodium Succinate 60 mg 11/15/20 05:00 11/15/20 05:50 Methylprednisolone Sod Succinate 40 Mg/1 Ml Inj IV 60 mg Q8HR MICHAEL Administration Ondansetron HCl 4 mg 11/14/20 18:25 Ondansetron 4 Mg/2 Ml Inj IV Q8H PRN Nausea And Vomiting Oxycodone/Acetaminophen 1 tab 11/14/20 18:25 11/15/20 02:29 Oxycodone /Acetaminophen 5-325mg Tab PO 1 tab Q6H PRN Administration Pain, Moderate (4-6) Sodium Chloride 10 ml 11/14/20 22:00 11/14/20 22:12 Sodium Chloride 0.9% 10 Ml Flush Syringe IV Not Given BID MICHAEL Sodium Chloride 10 ml 11/14/20 18:25 Sodium Chloride 0.9% 10 Ml Flush Syringe IV PRN PRN LINE FLUSH
[2020-11-15] MEDS: INSULIN LISPRO 100 UNIT/ML SUB-Q SCH ×4 (08:43→22:16)
[2020-11-15] MEDS: amLODIPine 10 MG TAB PO SCH (09:15)
[2020-11-16] MEDS: guaiFENesin DM 200/20 MG ORAL LIQD 10 ML PO PRN (05:15)
[2020-11-16] MEDS: methylPREDNISolone Sod Succinate 40 MG/1 ML INJ IV SCH ×3 (05:15→22:30)
[2020-11-16] MEDS: INSULIN LISPRO 100 UNIT/ML SUB-Q SCH ×4 (09:04→22:29)
[2020-11-16] MEDS: oxyCODONE /ACETAMINOPHEN 5-325MG TAB PO PRN ×3 (09:10→22:34)
[2020-11-16] MEDS ORDERED: ALBUTEROL 2.5 MG/3 ML NEBU IH PRN (09:57)
[2020-11-16] MEDS: IPRATROPIUM/ALBUTEROL SULFATE 3 ML AMPUL.NEB IH SCH ×3 (10:33→22:38)
[2020-11-16] MEDS: ARFORMOTEROL 15 MCG/2 ML NEBU IH SCH ×2 (10:34→22:37)
[2020-11-16] MEDS ORDERED: FUROSEMIDE 40 MG/4 ML INJ IV NR (11:00)
[2020-11-16] MEDS: amLODIPine 10 MG TAB PO SCH (11:03)
[2020-11-16] MEDS: CETIRIZINE 10 MG TAB PO SCH (12:22)
--- NOTE | 2020-11-16 12:54 | Progress Note ---
Assessment and Plan 50 y/o female with sarcoid, admitted with acute respiratory failure, could be sarcoid flare or sarcoid flare secondary to atypical pneumonia or just atypical pneumonia causing respiratory failure. 11/16/20: Continue steroids at current dosing. Will likely change to oral tomorrow if patient is feeling the same or better. Continue Albuterol. Continue scheduled nebs. Hopeful discharge in the next 24 hours. 1. Changed steroids to 60q8 2. Albuterol puffer q4 hours PRN 3. Prone as tolerated during the day and sleep prone at night 4. Wean off bipap therapy 5. Monitor fluid balance and attempt to keep as dry as possible Will continue to follow. Subjective Date of service: 11/16/20 Interval history: No acute events. Feels better. Thinks she may be ready to go home tomorrow. Still coughing but has been up moving around in the room. Objective Vital Signs - 12hr 11/16/20 11/16/20 11/16/20 03:55 05:21 07:12 Temperature 97.4 F L Pulse Rate 109 H 75 Pulse Rate [ Bilateral] Respiratory 28 H 20 Rate Respiratory Rate [Bilateral ] Respiratory 18 Rate [Lower Back] Blood Pressure 123/77 Blood Pressure [Right] O2 Sat by Pulse 99 100 Oximetry 11/16/20 11/16/20 11/16/20 09:51 10:06 11:03 Temperature Pulse Rate 99 H Pulse Rate [ 85 Bilateral] Respiratory Rate Respiratory 18 Rate [Bilateral ] Respiratory Rate [Lower Back] Blood Pressure 119/66 Blood Pressure [Right] O2 Sat by Pulse 97 Oximetry 11/16/20 11:09 Temperature 98.2 F Pulse Rate 99 H Pulse Rate [ Bilateral] Respiratory 20 Rate Respiratory Rate [Bilateral ] Respiratory Rate [Lower Back] Blood Pressure Blood Pressure 119/66 [Right] O2 Sat by Pulse 93 Oximetry CBC and BMP: 11/14/20 15:05 11/15/20 04:57 ABG, PT/INR, D-dimer: ABG ABG pH 7.412 (7.320-7.450) 11/14/20 18:05 POC ABG pCO2 39.3 mmHg (32.0-48.0) 11/14/20 18:05 POC ABG pO2 97.6 mmHg (83-108) 11/14/20 18:05 POC ABG HCO3 24.5 11/14/20 18:05 ABG O2 Saturation 98.0 (0-100) 11/14/20 18:05 PT/INR, D-dimer PT 13.5 Sec. (12.2-14.9) 11/14/20 15:05 INR 0.97 (0.87-1.13) 11/14/20 15:05 Abnormal lab findings: Abnormal Labs 11/14/20 11/14/20 11/14/20 15:05 15:05 18:05 Eos % (Auto) 8.0 H Eos # (Auto) 0.9 H Baso # (Auto) 0.2 H ABG Sodium 134.9 L ABG Glucose 170 H Carboxyhemoglobin 2.7 H Sodium 135 L Chloride 97.4 L BUN Glucose 150 H POC Glucose Hemoglobin A1c Total Bilirubin 2.00 H Alkaline Phosphatase 130 H Arterial Blood Glucose 170 H Arterial Blood Ionized Calcium 4.5 L Ur Specific [place] U Epithel Cells (Auto) 11/14/20 11/15/20 11/15/20 23:11 04:57 08:29 Eos % (Auto) Eos # (Auto) Baso # (Auto) ABG Sodium ABG Glucose Carboxyhemoglobin Sodium 135 L Chloride 96.3 L BUN 21 H Glucose 292 H POC Glucose 275 H Hemoglobin A1c Total Bilirubin Alkaline Phosphatase Arterial Blood Glucose Arterial Blood Ionized Calcium Ur Specific [place] 1.055 H U Epithel Cells (Auto) 14.0 H 11/15/20 11/15/20 11/15/20 08:32 10:57 16:24 Eos % (Auto) Eos # (Auto) Baso # (Auto) ABG Sodium ABG Glucose Carboxyhemoglobin Sodium Chloride BUN Glucose POC Glucose 405 H 266 H Hemoglobin A1c 8.4 H Total Bilirubin Alkaline Phosphatase Arterial Blood Glucose Arterial Blood Ionized Calcium Ur Specific [place] U Epithel Cells (Auto) 11/15/20 11/16/20 11/16/20 21:57 08:29 11:58 Eos % (Auto) Eos # (Auto) Baso # (Auto) ABG Sodium ABG Glucose Carboxyhemoglobin Sodium Chloride BUN Glucose POC Glucose 307 H 297 H 378 H Hemoglobin A1c Total Bilirubin Alkaline Phosphatase Arterial Blood Glucose Arterial Blood Ionized Calcium Ur Specific [place] U Epithel Cells (Auto)
[2020-11-16] MEDS: BUDESONIDE 0.5 MG/2 ML NEBU IH SCH ×2 (14:34→22:37)
--- NOTE | 2020-11-16 17:20 | Progress Note ---
Assessment and Plan Assessment and plan: --Acute respiratory failure with hypoxia/on BiPAP Current Visit: Yes Status: Acute Continue oxygen, BiPAP as needed Titrate O2 sats more than 90%, nebulizers Tapering dose of steroids .inhalation steroids and supportive care Pulmonary following Home O2 evaluation prior to discharge --Type 2 diabetes mellitus; uncontrolled A1c 8.7 A1c 8.7, patient is not on any diabetic medications at home High sugars probably may be due to steroids and medical noncompliance Accu-Chek sliding scale coverage ADA diet Long-acting insulin 70/30 twice a day Diabetic education, nutrition education prior to discharge Home health nurse for disease monitoring --PUI; high suspicion for COVID-19 Current Visit: Yes Status: Acute Continue contact and droplet isolation, Follow [place] PCR test requested. -- SIRS (systemic inflammatory response syndrome) Current Visit: Yes Status: Acute Empiric antibiotics, follow cultures -- Sarcoid Current Visit: Yes Status: Acute IV steroid therapy, supportive care, continue medical management. Outpatient rheumatology follow-up upon discharge --Obesity; BMI 38.4 Current Visit: Yes Status: Chronic Patient needs weight reduction when medically stable Dietary modification exercise as tolerated and weight reduction When patient is stable, Nutrition consult needed --DVT prophylaxis Current Visit: Yes Status: Acute SCD to bilateral lower extremities while in bed, patient is ambulatory Closely monitor the patient and adjust management as needed Pulmonary consult and recommendations noted and appreciated Possible discharge in 1 to 2 days if stable Home oxygen evaluation at discharge Plan of care reviewed with the patient and her nurse 11/15/2020; tapering dose of steroids Patient is on BiPAP, wean as tolerated Home O2 evaluation prior to discharge 11/16/2020; patient's blood sugars are uncontrolled Probably due to noncompliance with medications And high-dose steroids, Accu-Chek sliding scale coverage ADA diet We will request a diabetic education, nutrition education Add long-acting insulin 70/30, home health nurse upon discharge History Interval history: I have seen and examined the patient at the bedside this morning Patient's chart and medications reviewed Patient complains of some constipation Blood sugars uncontrolled probably secondary to steroids Patient denies any new symptoms Vital signs noted Hospitalist Physical - Constitutional Vitals: Temp Pulse Resp BP Pulse Ox 98.2 F 99 H 18 119/66 95 11/16/20 11:09 11/16/20 14:54 11/16/20 14:54 11/16/20 11:09 11/16/20 12:00 General appearance: Present: mild distress, well-nourished, obese (Morbidly obese) - EENT Eyes: Present: PERRL, EOM intact - Neck Neck: Present: supple, normal ROM - Respiratory Respiratory effort: normal Respiratory: bilateral: diminished, negative: rales, rhonchi, wheezing - Cardiovascular Rhythm: regular Heart Sounds: Present: S1 & S2 - Extremities Extremities: no ischemia, No edema - Abdominal General gastrointestinal: soft, non-tender, non-distended, normal bowel sounds - Integumentary Integumentary: Present: clear, warm - Psychiatric Psychiatric: appropriate mood/affect, cooperative - Neurologic Neurologic: CNII-XII intact, moves all extremities HEART Score - HEART Score Troponin: Troponin T < 0.010 ng/mL (0.00-0.029) 11/14/20 17:58 Results - Labs CBC & Chem 7: 11/14/20 15:05 11/15/20 04:57 Labs: Laboratory Last Values WBC 10.9 K/mm3 (4.5-11.0) 11/14/20 15:05 RBC 4.86 M/mm3 (3.65-5.03) 11/14/20 15:05 Hgb 14.2 gm/dl (10.1-14.3) 11/14/20 15:05 Hct 42.2 % (30.3-42.9) 11/14/20 15:05 MCV 87 fl (79-97) 11/14/20 15:05 MCH 29 pg (28-32) 11/14/20 15:05 MCHC 34 % (30-34) 11/14/20 15:05 RDW 13.6 % (13.2-15.2) 11/14/20 15:05 Plt Count 343 K/mm3 (140-440) 11/14/20 15:05 Lymph % (Auto) 18.2 % (13.4-35.0) 11/14/20 15:05 [facility] % (Auto) 5.2 % (0.0-7.3) 11/14/20 15:05 Eos % (Auto) 8.0 % (0.0-4.3) H 11/14/20 15:05 Baso % (Auto) 1.5 % (0.0-1.8) 11/14/20 15:05 Lymph # (Auto) 2.0 K/mm3 (1.2-5.4) 11/14/20 15:05 [facility] # (Auto) 0.6 K/mm3 (0.0-0.8) 11/14/20 15:05 Eos # (Auto) 0.9 K/mm3 (0.0-0.4) H 11/14/20 15:05 Baso # (Auto) 0.2 K/mm3 (0.0-0.1) H 11/14/20 15:05 Seg Neutrophils % 67.1 % (40.0-70.0) 11/14/20 15:05 Seg Neutrophils # 7.3 K/mm3 (1.8-7.7) 11/14/20 15:05 PT 13.5 Sec. (12.2-14.9) 11/14/20 15:05 INR 0.97 (0.87-1.13) 11/14/20 15:05 APTT 28.6 Sec. (24.2-36.6) 11/14/20 15:05 ABG pH 7.412 (7.320-7.450) 11/14/20 18:05 POC ABG pCO2 39.3 mmHg (32.0-48.0) 11/14/20 18:05 POC ABG pO2 97.6 mmHg (83-108) 11/14/20 18:05 POC ABG HCO3 24.5 11/14/20 18:05 ABG O2 Saturation 98.0 (0-100) 11/14/20 18:05 POC ABG Base Excess 0 11/14/20 18:05 ABG Hemoglobin 13.7 (12.0-17.5) 11/14/20 18:05 ABG Oxyhemoglobin 95.1 (94-98) 11/14/20 18:05 ABG Methemoglobin 0.3 (0.0-1.5) 11/14/20 18:05 ABG Sodium 134.9 mmol/L (136.0-145.0) L 11/14/20 18:05 ABG Potassium 4.4 mmol/L (3.40-4.50) 11/14/20 18:05 ABG Chloride 99.0 mmol/L (98-107) 11/14/20 18:05 ABG Glucose 170 mg/dL (65-95) H 11/14/20 18:05 Carboxyhemoglobin 2.7 (0.5-1.5) H 11/14/20 18:05 FiO2 % 35.0 11/14/20 18:05 Sodium 135 mmol/L (137-145) L 11/15/20 04:57 Potassium 4.6 mmol/L (3.6-5.0) 11/15/20 04:57 Chloride 96.3 mmol/L (98-107) L 11/15/20 04:57 Carbon Dioxide 24 mmol/L (22-30) 11/15/20 04:57 Anion Gap 19 mmol/L 11/15/20 04:57 BUN 21 mg/dL (7-17) H 11/15/20 04:57 Creatinine 0.9 mg/dL (0.6-1.2) 11/15/20 04:57 Estimated GFR > 60 ml/min 11/15/20 04:57 BUN/Creatinine Ratio 23 % 11/15/20 04:57 Glucose 292 mg/dL (65-100) H 11/15/20 04:57 POC Glucose 378 mg/dL (70-105) H 11/16/20 11:58 Hemoglobin A1c 8.4 % (4-6) H 11/15/20 08:32 Lactic Acid 1.00 mmol/L (0.7-2.0) 11/14/20 15:05 Calcium 8.8 mg/dL (8.4-10.2) 11/15/20 04:57 Magnesium 2.00 mg/dL (1.7-2.3) 11/14/20 17:58 Total Bilirubin 2.00 mg/dL (0.1-1.2) H 11/14/20 15:05 AST 24 units/L (5-40) 11/14/20 15:05 ALT 17 units/L (7-56) 11/14/20 15:05 Alkaline Phosphatase 130 units/L (35-129) H 11/14/20 15:05 Total Creatine Kinase 95 units/L (30-135) 11/14/20 17:58 Troponin T < 0.010 ng/mL (0.00-0.029) 11/14/20 17:58 Total Protein 7.9 g/dL (6.3-8.2) 11/14/20 15:05 Albumin 4.2 g/dL (3.9-5) 11/14/20 15:05 Albumin/Globulin Ratio 1.1 % 11/14/20 15:05 Arterial Blood Glucose 170 mg/dL (65-95) H 11/14/20 18:05 Arterial Blood Ionized Calcium 4.5 mg/dL (4.6-5.3) L 11/14/20 18:05 Urine Color Yellow (Yellow) 11/14/20 23:11 Urine Turbidity Slightly-cloudy (Clear) 11/14/20 23:11 Urine pH 5.0 (5.0-7.0) 11/14/20 23:11 Ur Specific [place] 1.055 (1.003-1.030) H 11/14/20 23:11 Urine Protein 30 mg/dl mg/dL (Negative) 11/14/20 23:11 Urine Glucose (UA) 50 mg/dL (Negative) 11/14/20 23:11 Urine Ketones 80 mg/dL (Negative) 11/14/20 23:11 Urine Blood Neg (Negative) 11/14/20 23:11 Urine Nitrite Neg (Negative) 11/14/20 23:11 Urine Bilirubin Neg (Negative) 11/14/20 23:11 Urine Urobilinogen 4.0 mg/dL (<2.0) 11/14/20 23:11 Ur Leukocyte Esterase Tr (Negative) 11/14/20 23:11 Urine WBC (Auto) 2.0 /HPF (0.0-6.0) 11/14/20 23:11 Urine RBC (Auto) 4.0 /HPF (0.0-6.0) 11/14/20 23:11 U Epithel Cells (Auto) 14.0 /HPF (0-13.0) H 11/14/20 23:11 Urine Bacteria (Auto) 1+ /HPF (Negative) 11/14/20 23:11 Urine Mucus 1+ /HPF 11/14/20 23:11 Coronavirus (PCR) Negative (Negative) 11/15/20 Unknown Microbiology: Microbiology 11/14/20 15:13 Peripheral/Venous Blood Culture - Preliminary NO GROWTH AFTER 24 HOURS 11/14/20 15:05 Peripheral/Venous Blood Culture - Preliminary NO GROWTH AFTER 24 HOURS Vivas/IV: Voiding Method Toilet Active Medications - Current Medications Current Medications: Generic Name Dose Route Start Last Admin Trade Name Freq PRN Reason Stop Dose Admin Acetaminophen 650 mg 11/14/20 18:25 Acetaminophen 325 Mg Tab PO Q4H PRN Pain MILD(1-3)/Fever >100.5/FRANCO Albuterol 2.5 mg 11/14/20 18:25 Albuterol 2.5 Mg/3 Ml Nebu IH Q4H PRN Shortness Of Breath Albuterol/Ipratropium 1 ampul 11/16/20 10:00 11/16/20 15:57 Ipratropium/Albuterol Sulfate 3 Ml Ampul.Neb IH Not Given Q6HRT MICHAEL Amlodipine Besylate 10 mg 11/15/20 10:00 11/16/20 11:03 Amlodipine 10 Mg Tab PO 10 mg DAILY MICHAEL Administration Arformoterol Tartrate 15 mcg 11/16/20 10:00 11/16/20 10:34 Arformoterol 15 Mcg/2 Ml Nebu IH 15 mcg Q12HRT MICHAEL Administration Budesonide 0.5 mg 11/16/20 10:00 11/16/20 14:34 Budesonide 0.5 Mg/2 Ml Nebu IH 0.5 mg Q12HRT MICHAEL Administration Cetirizine HCl 10 mg 11/16/20 11:00 11/16/20 12:22 Cetirizine 10 Mg Tab PO 10 mg QDAY MICHAEL Administration Guaifenesin 10 ml 11/15/20 02:19 11/16/20 05:15 Guaifenesin Dm 200/20 Mg Oral Liqd 10 Ml PO 10 ml Q4H PRN Administration Cough Insulin Human Lispro 0 unit 11/15/20 07:30 11/16/20 12:21 Insulin Lispro 100 Unit/Ml SUB-Q 8 unit ACHS MICHAEL Administration Protocol Magnesium Hydroxide 30 ml 11/16/20 17:12 Magnesium Hydroxide (Mom) Oral Liqd Udc PO Q4H PRN Constipation Magnesium Hydroxide 30 ml 11/16/20 17:12 Magnesium Hydroxide (Mom) Oral Liqd Udc PO 11/16/20 17:13 ONCE ONE Methylprednisolone Sodium Succinate 60 mg 11/15/20 05:00 11/16/20 15:07 Methylprednisolone Sod Succinate 40 Mg/1 Ml Inj IV 60 mg Q8HR MICHAEL Administration Ondansetron HCl 4 mg 11/14/20 18:25 Ondansetron 4 Mg/2 Ml Inj IV Q8H PRN Nausea And Vomiting Oxycodone/Acetaminophen 1 tab 11/14/20 18:25 11/16/20 15:32 Oxycodone /Acetaminophen 5-325mg Tab PO 1 tab Q6H PRN Administration Pain, Moderate (4-6) Sodium Chloride 10 ml 11/14/20 22:00 11/16/20 11:04 Sodium Chloride 0.9% 10 Ml Flush Syringe IV 10 ml BID MICHAEL Administration Sodium Chloride 10 ml 11/14/20 18:25 Sodium Chloride 0.9% 10 Ml Flush Syringe IV PRN PRN LINE FLUSH
[2020-11-16] MEDS ORDERED: MAGNESIUM HYDROXIDE (MOM) ORAL LIQD UDC PO SCH (18:00)
[2020-11-16] MEDS ORDERED: INSULIN NPH/REGULAR 70/30 INJ SUB-Q ONE (18:00)
[2020-11-16] MEDS ORDERED: MAGNESIUM HYDROXIDE (MOM) ORAL LIQD UDC PO PRN (21:00)
[2020-11-17] MEDS: IPRATROPIUM/ALBUTEROL SULFATE 3 ML AMPUL.NEB IH SCH ×4 (01:45→21:13)
[2020-11-17] MEDS: oxyCODONE /ACETAMINOPHEN 5-325MG TAB PO PRN ×2 (06:31→13:12)
[2020-11-17] MEDS: methylPREDNISolone Sod Succinate 40 MG/1 ML INJ IV SCH ×2 (06:32→13:13)
[2020-11-17] MEDS ORDERED: INSULIN NPH/REGULAR 70/30 INJ SUB-Q SCH (08:00)
[2020-11-17] MEDS: ARFORMOTEROL 15 MCG/2 ML NEBU IH SCH ×2 (08:40→21:13)
[2020-11-17] MEDS: BUDESONIDE 0.5 MG/2 ML NEBU IH SCH ×2 (08:40→21:12)
[2020-11-17] MEDS: amLODIPine 10 MG TAB PO SCH (13:13)
[2020-11-17] MEDS: INSULIN LISPRO 100 UNIT/ML SUB-Q SCH ×2 (13:14→19:11)
[2020-11-17] MEDS: CETIRIZINE 10 MG TAB PO SCH (13:14)
[2020-11-17] MEDS: INSULIN NPH/REGULAR 70/30 INJ SUB-Q SCH ×2 (13:17→19:12)
--- NOTE | 2020-11-17 14:35 | Progress Note ---
Assessment and Plan 50 y/o female with sarcoid, admitted with acute respiratory failure, could be sarcoid flare or sarcoid flare secondary to atypical pneumonia or just atypical pneumonia causing respiratory failure. No objection to discharge today. Please send out on Prednisone taper: 60 daily for 4 days, 40 daily for 4 days, 20 daily for 4 days and then patient resume home doses of steroids. She needs a prescription for Symbicort 160 2 puffs BID. She will follow up wit me in 1-2 weeks. She thinks she has an appointment next week but we will confirm. 1. Changed steroids to 60q8 2. Albuterol puffer q4 hours PRN 3. Prone as tolerated during the day and sleep prone at night 4. Wean off bipap therapy 5. Monitor fluid balance and attempt to keep as dry as possible Will continue to follow. Subjective Date of service: 11/17/20 Interval history: Spoke with patient over the phone, feels better, wants to go home. Objective Vital Signs - 12hr 11/17/20 11/17/20 06:11 13:13 Temperature 98.5 F Pulse Rate 80 75 Respiratory 20 Rate Blood Pressure 122/64 120/66 O2 Sat by Pulse 94 Oximetry CBC and BMP: 11/14/20 15:05 11/15/20 04:57 ABG, PT/INR, D-dimer: ABG ABG pH 7.412 (7.320-7.450) 11/14/20 18:05 POC ABG pCO2 39.3 mmHg (32.0-48.0) 11/14/20 18:05 POC ABG pO2 97.6 mmHg (83-108) 11/14/20 18:05 POC ABG HCO3 24.5 11/14/20 18:05 ABG O2 Saturation 98.0 (0-100) 11/14/20 18:05 PT/INR, D-dimer PT 13.5 Sec. (12.2-14.9) 11/14/20 15:05 INR 0.97 (0.87-1.13) 11/14/20 15:05 Abnormal lab findings: Abnormal Labs 11/14/20 11/14/20 11/14/20 15:05 15:05 18:05 Eos % (Auto) 8.0 H Eos # (Auto) 0.9 H Baso # (Auto) 0.2 H ABG Sodium 134.9 L ABG Glucose 170 H Carboxyhemoglobin 2.7 H Sodium 135 L Chloride 97.4 L BUN Glucose 150 H POC Glucose Hemoglobin A1c Total Bilirubin 2.00 H Alkaline Phosphatase 130 H Arterial Blood Glucose 170 H Arterial Blood Ionized Calcium 4.5 L Ur Specific [place] U Epithel Cells (Auto) 11/14/20 11/15/20 11/15/20 23:11 04:57 08:29 Eos % (Auto) Eos # (Auto) Baso # (Auto) ABG Sodium ABG Glucose Carboxyhemoglobin Sodium 135 L Chloride 96.3 L BUN 21 H Glucose 292 H POC Glucose 275 H Hemoglobin A1c Total Bilirubin Alkaline Phosphatase Arterial Blood Glucose Arterial Blood Ionized Calcium Ur Specific [place] 1.055 H U Epithel Cells (Auto) 14.0 H 11/15/20 11/15/20 11/15/20 08:32 10:57 16:24 Eos % (Auto) Eos # (Auto) Baso # (Auto) ABG Sodium ABG Glucose Carboxyhemoglobin Sodium Chloride BUN Glucose POC Glucose 405 H 266 H Hemoglobin A1c 8.4 H Total Bilirubin Alkaline Phosphatase Arterial Blood Glucose Arterial Blood Ionized Calcium Ur Specific [place] U Epithel Cells (Auto) 11/15/20 11/16/20 11/16/20 21:57 08:29 11:58 Eos % (Auto) Eos # (Auto) Baso # (Auto) ABG Sodium ABG Glucose Carboxyhemoglobin Sodium Chloride BUN Glucose POC Glucose 307 H 297 H 378 H Hemoglobin A1c Total Bilirubin Alkaline Phosphatase Arterial Blood Glucose Arterial Blood Ionized Calcium Ur Specific [place] U Epithel Cells (Auto) 11/16/20 11/16/20 11/16/20 17:01 17:18 21:49 Eos % (Auto) Eos # (Auto) Baso # (Auto) ABG Sodium ABG Glucose Carboxyhemoglobin Sodium Chloride BUN Glucose POC Glucose 378 H 403 H 378 H Hemoglobin A1c Total Bilirubin Alkaline Phosphatase Arterial Blood Glucose Arterial Blood Ionized Calcium Ur Specific [place] U Epithel Cells (Auto) 11/17/20 07:45 Eos % (Auto) Eos # (Auto) Baso # (Auto) ABG Sodium ABG Glucose Carboxyhemoglobin Sodium Chloride BUN Glucose POC Glucose 368 H Hemoglobin A1c Total Bilirubin Alkaline Phosphatase Arterial Blood Glucose Arterial Blood Ionized Calcium Ur Specific [place] U Epithel Cells (Auto)
--- NOTE | 2020-11-17 16:39 | Discharge Summary ---
Providers - Providers Date of Admission: 11/14/20 18:25 Date of discharge: 11/17/20 Attending physician: SHADY ODWNEY 11/14/20 18:24 Consult to Physician [CONS] Routine Comment: Consulting Provider: LUIS A SMILEY Physician Instructions: Reason For Exam: sarcoidosis/respiratory failure Primary care physician: SEVEN HUNG DO Hospitalization Reason for admission: Acute hypoxic respiratory failure/increased work of breathing Condition: Serious Pertinent studies: Chest x-ray CTA chest Hospital course: 50-year-old female patient with significant past medical history of sarcoidosis type 2 diabetes mellitus and obesity was admitted through emergency room with acute hypoxic respiratory failure requiring supplemental oxygen and BiPAP, patient was noted to be hypoxemic on site. Patient was requiring supplemental oxygen. Was admitted to the hospital. PUI with high suspicion of COVID-19. PCR test was negative Patient was placed on oxygen, nebulizers IV steroids IV antibiotics and supportive care, pulmonary evaluated the patient and optimize the medications Patient symptoms slowly but gradually improved. Patient is ambulatory and tolerating oral nutrition We have evaluated for home oxygen, no indication for home oxygen as patient's O2 sats resting room air and ambulatory room air are more than 94% No indication home O2 and patient does not fit the criteria for home oxygen. Patient is morbidly obese with BMI of 38.7,, counseling done patient advised diet modification exercise as tolerated and weight reduction when medically stable Consultants have cleared cleared for discharge and follow-up in office for further evaluation management Stable at discharge Discharge diagnosis; --Acute respiratory failure with hypoxia/on BiPAP Continue oxygen, BiPAP as needed Titrate O2 sats more than 90%, nebulizers Tapering dose of steroids .inhalation steroids and supportive care Pulmonary evaluated the patient and optimize the medication No need for Home O2, as patient saturating well resting and ambulatory room air --Type 2 diabetes mellitus; uncontrolled A1c 8.7 A1c 8.7, patient is on insulin insulin pump at home/ Accu-Chek sliding scale coverage ADA diet advised to continue insulin pump as before --PUI; negative COVID-19 test; negative -- SIRS (systemic inflammatory response syndrome) Current Visit: Yes Status: Acute Empiric antibiotics, follow cultures -- Sarcoid IV steroid therapy, supportive care, continue medical management. Outpatient rheumatology follow-up upon discharge --Obesity; BMI 38.4 Patient needs weight reduction when medically stable Dietary modification exercise as tolerated and weight reduction When patient is stable, Nutrition consult needed --DVT prophylaxis Current Visit: Yes Status: Acute Stable at discharge Disposition: DC-01 TO HOME OR SELFCARE Final Discharge Diagnosis (Prints w/discharge instructions): Acute hypoxic respiratory failure. Type 2 diabetes mellitus. SIRS sarcoidosis. obesity BMI 38.7. Negative COVID-19 Time spent for discharge: 35 min Core Measure Documentation - Palliative Care Palliative Care/ Comfort Measures: Not Applicable - Core Measures Any of the following diagnoses?: none Exam - Constitutional Vitals: Temp Pulse Resp BP Pulse Ox 98.5 F 75 20 120/66 94 11/17/20 06:11 11/17/20 13:13 11/17/20 06:11 11/17/20 13:13 11/17/20 06:11 General appearance: Present: no acute distress, well-nourished, obese - EENT Eyes: Present: PERRL, EOM intact - Neck Neck: Present: supple, normal ROM - Respiratory Respiratory effort: normal Respiratory: bilateral: diminished, negative: rales, rhonchi, wheezing - Cardiovascular Rhythm: regular Heart Sounds: Present: S1 & S2 - Extremities Extremities: no ischemia, No edema - Abdominal General gastrointestinal: Present: soft, non-tender, non-distended, normal bowel sounds - Integumentary Integumentary: Present: clear, warm - Musculoskeletal Musculoskeletal: strength equal bilaterally, generalized weakness - Psychiatric Psychiatric: appropriate mood/affect, cooperative - Neurologic Neurologic: moves all extremities Plan Activity: advance as tolerated Diet: low salt, diabetic, other (Cardiac diet) Additional Instructions: Your resting room air and ambulatory room air O2 sats are more than 95% no indication for home oxygen. If you have worsening symptoms contact MD or go to emergency room as needed. Advised diet modification exercise as tolerated and weight reduction when you are medically stable. Advised to continue insulin/insulin pump as before. Strictly follow diabetic diet Follow up with: SEVEN HUNG DO [Primary Care Provider] - 3-5 Days LUIS A SMILEY MD [Staff Physician] - 14 Days Prescriptions: amLODIPine 10 mg PO DAILY #30 predniSONE [Deltasone] 20 mg PO QDAY #40 tab Budesonide/Formoterol Fumarate [Symbicort 160-4.5 Mcg Inhaler] 2 puff IH BID 30 Days #2 hfa.aer.ad tiZANidine [Zanaflex 4mg TAB] 4 mg PO TID #15
[2020-11-17 18:41] VITALS: BP 133/73
--- NOTE | 2020-11-18 18:31 | Electrocardiograph Report ---
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
== END 2020-11-17 20:35 | disposition home or self-care (01) | DRG 189 ==
LOC: ED 13:16 → 4A 18:25 → 3A 23:44
PROVIDERS: ADMIT Internal Medicine; ATTEND Internal Medicine
PROC: 5A09457 Assistance with Respiratory Ventilation, 24-96 Consecutive Hours, Continuous Positive Airway Pressure (ICD-10-PCS; principal; 2020-11-14)
PROC: 4A033R1 Measurement of Arterial Saturation, Peripheral, Percutaneous Approach (ICD-10-PCS; 2020-11-14)
DX: J96.01 Acute respiratory failure with hypoxia (principal); R65.10 Systemic inflammatory response syndrome (SIRS) of non-infectious origin without acute organ dysfunction; D86.9 Sarcoidosis, unspecified; Z20.822 Contact with and (suspected) exposure to COVID-19; E11.9 Type 2 diabetes mellitus without complications; E66.9 Obesity, unspecified; I10 Essential (primary) hypertension; Z90.710 Acquired absence of both cervix and uterus; Z82.49 Family history of ischemic heart disease and other diseases of the circulatory system; Z83.3 Family history of diabetes mellitus; Z79.899 Other long term (current) drug therapy; Z68.38 Body mass index [BMI] 38.0-38.9, adult
CPT/HCPCS: 36415; 71046; 71275; 80048; 80053; 81001; 82140; 82550; 82805; 82962; 83036; 83735; 84484; 85025; 85610; 85730; 87040; 93005; 94640; 94644; 94660; G0378; J0456; J0696; J1815; J1940; J2270; J2405; J2920; J2930; J7040; Q9967; U0003